=== PATIENT | female | born 1950 | race Caucasian/White ===

== ENCOUNTER → 2022-08-17 16:27 | Outpatient (CLI) | payer MEDICARE, OTHER, SELFPAY ==
--- NOTE | 2022-08-17 16:28 | MR_ITS ---
PROCEDURE INFORMATION: Exam: MR Right Upper Extremity Joint Without Contrast; Shoulder Exam date and time: 08/17/2022 4:38 PM Age: 72 years old Clinical indication: Pain; Shoulder; Right; Additional info: Right shoulder pain. Numbness in right arm. Limited rom TECHNIQUE: Imaging protocol: Magnetic resonance imaging of the right upper extremity without contrast. Exam focused on the shoulder. COMPARISON: CR SHOULDER RIGHT COMPLETE [id number] 07/27/2022 5:34 PM FINDINGS: Bones/joints: Small complex glenohumeral joint effusion. Mild posterior decentering of the humeral head. 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 Glenohumeral arthropathy visualized. There is thinning and irregularity of the glenoid cartilage, spurring of the medial aspect of the humeral head. Multiple small osseous cysts and minimal edematous change visualized involving the humeral head superiorly. This is likely degenerative or due to prior trauma. A minimal effusion is seen at the acromioclavicular joint. Small osseous cysts are seen adjacent to the acromioclavicular joint, secondary to arthropathy. Glenoid labrum: Heterogeneous signal intensity of the superior aspect of the labrum, consistent with degenerative change. Labral tear cannot be excluded. Blunting and irregularity of the posterior aspect of the labrum, with suggested labral tear. Bursae: Fluid is seen within the subscapularis recess/subcoracoid bursa. Minimal fluid within the subdeltoid/subacromial bursa. Supraspinatus tendon: Abnormal signal intensity is identified involving the supraspinatus tendon, with tendinosis and partial tear. Infraspinatus tendon: Tendinosis and suggested partial tear of the infraspinatus tendon. Subscapularis tendon: A linear focus of PD hyperintensity is identified within the subscapularis tendon, consistent with tear. Teres minor tendon: No evidence of tear. Tendon of biceps brachii: Increased signal intensity within the proximal long of the biceps tendon, consistent with tendinosis. Glenohumeral ligaments: No visualized tear of the inferior glenohumeral ligament. Mild edema adjacent to the coracoclavicular ligament, with suggested ligament sprain. Soft tissues: Unremarkable. Lymph nodes: A few small nonspecific axillary lymph nodes are IMPRESSION: 1. Tendinosis and partial tear of the supraspinatus tendon. 2. Tendinosis and suggested partial tear of the infraspinatus tendon. 3. Subscapularis tendon tear. 4. Tendinosis of the long head of the biceps tendon. 5. Small complex glenohumeral joint effusion. 6. 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 7. Glenohumeral arthropathy. 8. Multiple small osseous cysts and minimal edematous change are visualized involving the humeral head superiorly. This is likely degenerative or due to prior trauma. 9. Mild edema adjacent to the coracoclavicular ligament, with suggested ligament sprain. 10. Minimal fluid within the subdeltoid/subacromial bursa. 11. Suggested labral tear. 12. Additional findings described above.
== END ==
PROVIDERS: PCP Nurse Practitioner Family; Visit Provider Specialist
DX: M25.511 Pain in right shoulder (principal)
CPT/HCPCS: 73221